=== PATIENT | female | born 1965 | race African-American/Black ===

== ENCOUNTER → 2018-12-27 | Day surgery (SDC) | payer BC ==
[2018-12-25 11:23] VITALS: BMI 36.8
[~2018-12-27] MED LIST: LIDOCAINE HCL/PF 2% SDV 5ML VIAL ONE; PROPOFOL 20 ML ONE
[2018-12-27 10:13] VITALS: TEMP 98.6
[2018-12-27 13:08] VITALS: BP 132/86; PULSE 78
--- NOTE | 2019-01-01 13:31 | PATH ---
Surgical Pathology Report Patient Name: VALDO DORANTES [facility]. Rec. #: [id number] /Age/Gender: 1965 (Age: 53) / F Account: [id number] Location: [facility] Taken: 12/27/2018 Received: 12/27/2018 Reported: 01/01/2019 Physicians: Danilela Conde M.D. Specimen(s) Received A: BX SECOND PORTION DUODENUM B: BX GASTRIC ANTRUM C: BX GE JUNCTION Clinical History GERD Postoperative diagnosis: Gastritis Final Diagnosis A. SECOND PORTION OF DUODENUM, BIOPSY: DUODENAL MUCOSA WITH NO PATHOLOGIC FINDINGS. B. GASTRIC ANTRUM, BIOPSY: MILD CHRONIC GASTRITIS. IMMUNOSTAIN IS NEGATIVE FOR H. PYLORI ORGANISMS. C. GE JUNCTION, BIOPSY: COLUMNAR (GASTRIC CARDIA-TYPE) MUCOSA SHOWING MILD CHRONIC INFLAMMATION. NEGATIVE FOR INTESTINAL METAPLASIA. NO ESOPHAGEAL (SQUAMOUS) MUCOSA IS IDENTIFIED. Electronically Signed Janki Jara M.D. Gross Description A. Received in formalin, labeled "biopsy second portion of duodenum" is a holm, irregular portion of soft tissue measuring 0.4 cm. in greatest dimension. The specimen is submitted in toto in one cassette. B. Received in formalin, labeled "biopsy gastric antrum" is a holm, irregular portion of soft tissue measuring 0.6 cm. in greatest dimension. The specimen is submitted in toto in one cassette. C. Received in formalin, labeled "biopsy GE junction" is a holm, irregular portion of soft tissue measuring 0.7 cm. in greatest dimension. The specimen is submitted in toto in one cassette. 12/28/2018 saudi12/28/2018
== END | disposition home or self-care (01) ==
LOC: FASU-ENDO 09:31
PROVIDERS: ATTEND Internal Medicine Gastroenterology
PROC: 0DB48ZX Excision of Esophagogastric Junction, Via Natural or Artificial Opening Endoscopic, Diagnostic (ICD-10-PCS; 2018-12-27)
PROC: 0DB98ZX Excision of Duodenum, Via Natural or Artificial Opening Endoscopic, Diagnostic (ICD-10-PCS; principal; 2018-12-27 11:26)
PROC: 0DB68ZX Excision of Stomach, Via Natural or Artificial Opening Endoscopic, Diagnostic (ICD-10-PCS; 2018-12-27 11:26)
DX: K29.50 Unspecified chronic gastritis without bleeding (principal); K20.9 Esophagitis, unspecified; R10.13 Epigastric pain
CPT/HCPCS: 88305-TC; 88342-TC

== ENCOUNTER 2019-10-24 11:56 | Day surgery (SDC) | payer BC ==
[2019-10-18 15:37] VITALS: BMI 38.0
[2019-10-24] MEDS ORDERED: PROPOFOL 20 ML ONE (14:30)
[2019-10-24 16:03] VITALS: BP 110/61; PULSE 71; TEMP 98
== END 2019-10-24 15:45 | disposition home or self-care (01) ==
LOC: FASU-ENDO 11:56
PROVIDERS: ATTEND Internal Medicine Gastroenterology
PROC: 0DJD8ZZ Inspection of Lower Intestinal Tract, Via Natural or Artificial Opening Endoscopic (ICD-10-PCS; principal; 2019-10-24 14:32)
DX: Z12.11 Encounter for screening for malignant neoplasm of colon (principal); K64.0 First degree hemorrhoids